=== PATIENT | male | born 1955 | race Caucasian/White ===

== ENCOUNTER 2016-03-11 10:14 | Emergency (ER) | payer MEDICAID, OTHER ==
[~2016-03-11] VITALS: Ht 180.3 cm; Wt 93.1 kg
[2016-03-11 10:25] VITALS: BP 142/90; PULSE 88; RESP 16; TEMP 98.3; O2SAT 99
[2016-03-11] MEDS ORDERED: HTN MED (10:43)
[2016-03-11] MEDS ORDERED: IBUP800T23 PO ×2 (10:43→10:50)
[2016-03-11] MEDS ORDERED: PERC10TA27 PO (10:43)
[2016-03-11] MEDS ORDERED: MORPHINE SULFATE 4 MG/ML INJ IM ONE (10:45)
[2016-03-11] MEDS ORDERED: DEXAMETHASONE SOD PHOS 20 MG/5 ML VIAL IM ONE (10:45)
--- NOTE | 2016-03-11 10:51 | PD ---
HPI . Pain Chief Complaint: Pain: Acute or Chronic Time Seen by Provider: 10:39 Travel History International Travel<30 days: No Contact w/Intl Traveler<30days: No Traveled to known affect area: No History of Present Illness HPI Patient presents complaining with bilateral hip pain, right worse than left. He states that he is scheduled for a right total hip replacement in April. He states that he lives in [place] and is here taking a pair of to a 91-year-old relative who has fallen and broken his collarbone. He reports that he has been out of his Percocet and Motrin for about 2 weeks. He states that he called his doctor back in [place] and was instructed to come to the emergency department and get an injection and a refill of his prescriptions. PFSH Past Medical History Hx Anticoagulant Therapy: Yes (asa 81mg) Cardiovascular Problems: Yes (htn on meds) Social History Alcohol Use: No Tobacco Use: Yes Allergies-Medications (Allergen,Severity, Reaction): Coded Allergies: No Known Allergies (Unverified , 03/11/16) Reported Meds & Prescriptions Reported Meds & Active Scripts Active Reported [Htn Med] 0 Ibuprofen 800 Mg Tab 800 Mg PO TID Percocet (Oxycodone-Acetaminophen) 10-325 mg Tab 1 Tab PO TID PRN Review of Systems Except as stated in HPI: all other systems reviewed are Neg Musculoskeletal: Positive: Arthralgias Physical Exam Narrative GENERAL: Healthy-appearing older gentleman who is in no acute distress. SKIN: Warm and dry. HEAD: Atraumatic. Normocephalic. EYES: Pupils equal and round. ENT: No nasal bleeding or discharge. Mucous membranes pink and moist. NECK: Trachea midline. CARDIOVASCULAR: Regular rate and rhythm. RESPIRATORY: No accessory muscle use. MUSCULOSKELETAL: No obvious deformities. No edema. Tender in the right groin and pain with log rolling of the right lower extremity. NEUROLOGICAL: Awake and alert. No obvious cranial nerve deficits. Motor grossly within normal limits. Normal speech. PSYCHIATRIC: Appropriate mood and affect; insight and judgment normal. Data Data Last Documented VS Vital Signs Date Time Temp Pulse Resp B/P Pulse Ox O2 Delivery O2 Flow Rate FiO2 03/11/16 10:25 98.3 88 16 142/90 99 Orders Dexamethasone Inj (Decadron Inj) (03/11/16 10:45) Morphine Inj (Morphine Inj) (03/11/16 10:45) MDM Medical Decision Making Medical Screen Exam Complete: Yes Emergency Medical Condition: Yes Differential Diagnosis Differential diagnosis of joint pain includes but is not limited to arthritis, gout, sprain/strain, fracture, dislocation Narrative Course Patient presents requesting a shot and a refill of his chronic pain medications. I have explained to the patient that I cannot refill his narcotic the emergency department. I ordered a Decadron shot and a morphine shot here. 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 Therefore the morphine shot has been discontinued. I have refilled his ibuprofen. Diagnosis Primary Impression: Right hip pain Med/Other Pt SpecificInfo: Prescription(s) given Scripts Ibuprofen 800 Mg [id number] Mg PO Q8H PRN (pain) #90 TAB Ref 0 Prov:Albina Banuelos MD 03/11/16 Disposition: 01 DISCHARGE HOME Condition: Stable Albina Banuelos MD Mar 11, 2016 10:51
== END 2016-03-11 11:07 | disposition home or self-care (01) ==
LOC: PHEFT 10:14
DX: M25.551 Pain in right hip (principal); I10 Essential (primary) hypertension
CPT/HCPCS: 96372; 99283; J1100